=== PATIENT | female | born 1990 ===

== ENCOUNTER 2018-01-19 09:16 | Emergency (ER) | payer BC ==
[2018-01-19 10:31] VITALS: BP 118/65
--- NOTE | 2018-01-19 10:56 | UC ---
Throat Pain/Nasal Severiano HPI - HPI Summary HPI Summary: sore throat for 4 days getting worse. has not tried anythign to treat - History of Current Complaint Chief Complaint: UCRespiratory Stated Complaint: SORE THROAT Time Seen by Provider: 01/19/18 10:40 Hx Obtained From: Patient Hx Last Menstrual Period: 11/19/17, HAS PCOS, PERIODS ARE IRREG ?: No Onset/Duration: Sudden Onset, Lasting Days Severity: Severe Pain Intensity: 7 Associated Signs & Symptoms: Positive: Dysphagia, Sinus Discomfort, Nasal Discharge, Fever - Allergies/Home Medications Allergies/Adverse Reactions: Allergies Allergy/AdvReac Type Severity Reaction Status Date / Time bee venom protein (honey bee) Allergy Severe Anaphylatic Verified 01/19/18 10:23 Shock Home Medications: Home Medications Acetaminophen TAB* [Tylenol TAB*] 325 mg PO Q4H PRN 01/19/18 [History Confirmed 01/19/18] EPINEPHrine [Epipen] 0.3 mg IJ PRN 01/19/18 [History] Phenylephrine/Dm/Acetaminop/GG [Daytime Severe Cold-Flu Liquid] 1 liq PRN [History] PMH/Surg Hx/FS Hx/Imm Hx Previously Healthy: Yes - Surgical History Surgical History: Yes Surgery Procedure, Year, and Place: CHOLYCYSTECTOMY - Family History Known Family History: Negative: Cardiac Disease, Hypertension - Social History Alcohol Use: None Substance Use Type: None Smoking Status (MU): Former Smoker Type: Cigarettes When Did the Patient Quit Smoking/Using Tobacco: 09/2017 Review of Systems Constitutional: Negative Skin: Negative Eyes: Negative ENT: Sore Throat, Ear Ache, Nasal Discharge Respiratory: Cough Cardiovascular: Negative Gastrointestinal: Negative Genitourinary: Negative Motor: Negative Neurovascular: Negative Musculoskeletal: Negative Neurological: Negative Psychological: Negative Is Patient Immunocompromised?: No All Other Systems Reviewed And Are Negative: Yes Physical Exam Triage Information Reviewed: Yes Appearance: Well-Nourished, Pain Distress Vital Signs: Initial Vital Signs Temp 98.3 F 01/19/18 10:25 Pulse 73 01/19/18 10:25 Resp 18 01/19/18 10:25 BP 118/65 01/19/18 10:25 Pulse Ox 99 01/19/18 10:25 Vital Signs Reviewed: Yes Eye Exam: Normal ENT: Positive: Pharyngeal erythema, TM dull, TM red, Tonsillar swelling, Hoarse voice Dental Exam: Normal Neck exam: Normal Neck: Positive: Supple, Nontender, Enlarged Nodes @ - bilateral cervical Respiratory Exam: Normal Respiratory: Positive: Chest non-tender, Lungs clear, Normal breath sounds Cardiovascular Exam: Normal Cardiovascular: Positive: RRR, No Murmur, Pulses Normal Abdominal Exam: Normal Abdomen Description: Positive: Nontender, No Organomegaly, Soft Bowel Sounds: Positive: Present Musculoskeletal Exam: Normal Neurological Exam: Normal Psychological Exam: Normal Skin Exam: Normal Throat Pain/Nasal Course/Dx - Course Course Of Treatment: hx obtained, exam performed ,meds reviewed, tested + for strep - Differential Dx/Diagnosis Differential Diagnosis/HQI/PQRI: Otitis Media, Pharyngitis, Sinusitis, URI Provider Diagnoses: Strep pharyngitis Discharge - Discharge Plan Condition: Stable Disposition: HOME Patient Education Materials: Strep Throat (DC) Referrals: Azul Javier MD [Primary Care Provider] - Additional Instructions: 1. take the medication as prescribed. 2. Increase fluid intake and get plenty of rest. 3. Follow up if symtpoms get worse
== END 2018-01-19 11:11 | disposition home or self-care (01) ==
LOC: UCCORT 09:16
DX: H60.92 Unspecified otitis externa, left ear (principal)
CPT/HCPCS: 87651; 99202; G0463